=== PATIENT | female | born 1980 | race Two or more races ===

== ENCOUNTER 2017-08-18 17:12 | Observation (INO) | payer MEDICAID, OTHER ==
[~2017-08-18] VITALS: Ht 157.5 cm; Wt 56.7 kg
[2017-08-18 19:48] LABS: Basophils # (auto) 0.1 uL; Basophils % (auto) 0.6 % (0.0-2.0); Eosinophils # (auto) 0 uL; Hematocrit 35.3 % (36.0-46.0); Hemoglobin 11.1 g/dL (12.2-16.2); Monocytes # (auto) 0.4 uL; Nucleated Red Blood Cells % 0.1 %; Red Blood Cells 5.12 10^6/uL (4.0-5.20)
[2017-08-18 19:49] LABS: Eosinophils % (auto) 0.2 % (0.0-7.0); Lymphocytes # (auto) 1.5 uL; Mean Corpuscular Hemoglobin 21.8 pg (28.0-32.0); Mean Corpuscular Hgb Conc. 31.6 g/dL (32.0-36.0); Monocytes % (auto) 4.6 % (0.0-12.0); Neutrophils # (auto) 6.5 uL; Neutrophils % (auto) 76.6 % (37.0-80.0); Platelet Count (auto) 282 10^3/uL (140-450); Red Cell Distribution Width 17.6 % (11.8-14.3); White Blood Cell 8.5 10^3/uL (4.4-10.8)
[2017-08-18 20:02] LABS: Alanine Aminotransferase 19 U/L (13-56); Albumin 4.1 g/dL (3.4-5.0); Anion Gap 2 (5-15); Aspartate Aminotransferase 13 U/L (15-37); BUN/Creatinine Ratio 9.2; Blood Alcohol < 3.0 mg/dL (0-5); Blood Urea Nitrogen 6 mg/dL (7-18); Calcium 8.7 mg/dL (8.5-10.1); Carbon Dioxide 29 mmol/L (21-32); Chloride 108 mmol/L (98-107); GFR African American 133 mL/min; GFR Non-African American 110 mL/min; Glucose 92 mg/dL (74-106); Potassium 4.2 mmol/L (3.5-5.1); Sodium 139 mmol/L (136-145)
[2017-08-18 20:04] LABS: Acetaminophen < 2.0 ug/mL (10-30); Salicylate < 1.7 mg/dL (2.8-20.0)
[2017-08-18 20:05] LABS: Alkaline Phosphatase 66 U/L (45-117); Bilirubin, Total 0.3 mg/dL (0.2-1.0); Total Protein 7.6 g/dL (6.4-8.2)
[2017-08-19 05:07] LABS: Alcohol, Urine < 3.0 mg/dL (0-5); Amphetamine Screen, Urine POSITIVE (NEGATIVE); Barbiturate Scree,Urine NEGATIVE (NEGATIVE); Benzodiazephine Screen, Urine NEGATIVE (NEGATIVE); Cannabinoid Screen, Urine NEGATIVE (NEGATIVE); Cocaine Screen, Urine NEGATIVE (NEGATIVE); Opiate Scree,Urine NEGATIVE (NEGATIVE); Phencyclidine Screen, Urine NEGATIVE (NEGATIVE)
[2017-08-19] MEDS ORDERED: ONDANSETRON ODT 4 MG TAB PO ONE (16:12)
[2017-08-19] MEDS ORDERED: LORazepam 0.5 MG TAB ONE (16:12)
[2017-08-19] MEDS ORDERED: ONDANSETRON ODT 4 MG TAB PO PRN (16:15)
[2017-08-19] MEDS: LORazepam 0.5 MG TAB PO PRN (16:58)
[2017-08-20] MEDS: LORazepam 0.5 MG TAB PO PRN ×3 (02:01→16:30)
[2017-08-20] MEDS ORDERED: ACETAMINOPHEN 325 MG TAB PO ONE (16:45)
[2017-08-20] MEDS ORDERED: LORazepam 0.5 MG TAB PO ONE (18:45)
[2017-08-20] MEDS ORDERED: cefTRIAXone 1GM/10ml IVPUSH 10 ML IV ONE (18:45)
[2017-08-21] MEDS: LORazepam 0.5 MG TAB PO PRN ×3 (06:15→18:34)
[2017-08-21] MEDS: ACETAMINOPHEN 325 MG TAB PO PRN ×2 (11:33→18:34)
[2017-08-22] MEDS: LORazepam 0.5 MG TAB PO PRN (10:39)
[2017-08-22] MEDS: ACETAMINOPHEN 325 MG TAB PO PRN (10:40)
[2017-08-22 20:11] VITALS: BP 125/86
== END 2017-08-22 20:15 | disposition home or self-care (01) | DRG 812 ==
LOC: EDBD 17:12 → ER 17:12 → OVERFLOW 17:13 → ER 08-22 20:15
PROVIDERS: ADMIT Physician Assistant; ATTEND Physician Assistant
DX: T50.992A Poisoning by other drugs, medicaments and biological substances, intentional self-harm, initial encounter (principal); F32.9 Major depressive disorder, single episode, unspecified; Y92.89 Other specified places as the place of occurrence of the external cause; F17.210 Nicotine dependence, cigarettes, uncomplicated
CPT/HCPCS: 36415; 80053; 80307; 80320; 80329; 84702; 85025; 96374; 99285; G0378; Q0162